=== PATIENT | female | born 1970 | race African-American/Black ===

== ENCOUNTER 2023-02-09 12:32 | Emergency (ER) | payer OTHER, SELFPAY | END 2023-02-09 15:03 | disposition home or self-care (01) | LOC: CSHERS 12:32 | DX: S16.1XXA Strain of muscle, fascia and tendon at neck level, initial encounter (principal); S20.219A Contusion of unspecified front wall of thorax, initial encounter; E78.5 Hyperlipidemia, unspecified; V89.2XXA Person injured in unspecified motor-vehicle accident, traffic, initial encounter | CPT/HCPCS: 71045; 72125; 93005 ==